=== PATIENT | female | born 1995 | race African-American/Black ===

== ENCOUNTER 2020-04-30 08:46 | Day surgery (SDC) | payer BC, OTHER ==
--- NOTE | 2020-04-24 12:01 | HP ---
Admitting History and Physical - Primary Care Physician PCP: Konrad Niño - Admission Chief Complaint: right accessory breast tissue History of Present Illness: 25 year old premenapausal nulliparous female who presents with bilateral axillary masses for past 5 years that have recently increased in size right greater than left. right region was enlarged and painful since the last visit. Patient'S grandmother had breast cancer at AGE 60. History Source: Patient Limitations to Obtaining History: No Limitations - Past Medical History ...LMP: 09/10/18 - Past Surgical History Past Surgical History: Yes: Hernia Repair (inguinal as a toddler) - Smoking History Smoking history: Never smoked - Alcohol/Substance Use Hx Alcohol Use: No Home Medications - Allergies Allergies/Adverse Reactions: Allergies Allergy/AdvReac Type Severity Reaction Status Date / Time aspirin Allergy Nausea Verified 12/06/18 10:57 ibuprofen Allergy Nausea Verified 12/06/18 10:57 - Home Medications Home Medications: Ambulatory Orders NK [No Known Home Medication] 12/06/18 Family Medical History Family Hx Cancer: Grandmother (maternal) (breast ca 60) Physical Examination Constitutional: Yes: Well Nourished Breast(s): Yes: Other ( breast no palapble masses bilaterally, Right axillary breast tissue 6 cm,left is minimal) Problem List - Problems (1) Axillary accessory breast tissue Problems reviewed: Yes Code(s): Q83.1 - ACCESSORY BREAST Assessment/Plan excision of right accessory breast tissue
[2020-04-24 12:30] VITALS: BMI 26.6
[2020-04-30] MEDS ORDERED: ONDANSETRON 4 MG/2 ML VIAL IVPUSH PRN (09:44)
[2020-04-30] MEDS ORDERED: KETOROLAC TROMETHAMINE 30 MG/1 ML VIAL IVPUSH PRN (09:44)
[2020-04-30] MEDS ORDERED: DEXTROSE 5%-0.45% SALINE 1,000 ML IV SCH (09:45)
[2020-04-30] MEDS ORDERED: LIDOCAINE HCL 1%, 10 MG/ML (20ML VIAL) ONE (09:48)
[2020-04-30] MEDS ORDERED: BUPIVACAINE HCL/PF 0.5% (5MG/ML) 10 ML VIAL ONE (09:48)
[2020-04-30] MEDS ORDERED: LIDOCAINE HCL 1%, 10 MG/ML (20ML VIAL) NR ONE ×3 (10:35)
[2020-04-30] MEDS ORDERED: BUPIVACAINE HCL/PF 0.5% (5 MG/ML) 30 ML VIAL IJ ONE ×3 (10:35)
[2020-04-30] MEDS ORDERED: MIDAZOLAM HCL 2 MG/2 ML SINGLE DOSE VIAL ONE ×2 (11:02→11:04)
[2020-04-30] MEDS ORDERED: PROPOFOL 20 ML ONE (11:03)
[2020-04-30] MEDS ORDERED: ONDANSETRON 4 MG/2 ML VIAL ONE ×2 (11:04)
[2020-04-30] MEDS ORDERED: ROCURONIUM BROMIDE 50 MG/5 ML SYRINGE ONE (11:04)
[2020-04-30] MEDS ORDERED: DEXAMETHASONE SOD PHOSPHATE 4 MG/1 ML VIAL ONE (11:04)
[2020-04-30] MEDS ORDERED: KETOROLAC TROMETHAMINE 30 MG/1 ML VIAL ONE (11:05)
[2020-04-30] MEDS ORDERED: oxyCODONE HCL 5 MG TABLET PO PRN (11:24)
[2020-04-30] MEDS ORDERED: PROMETHAZINE HCL 25 MG/1 ML VIAL IVPUSH PRN (11:24)
[2020-04-30 11:38] VITALS: TEMP 98
[2020-04-30 13:09] VITALS: BP 105/66; PULSE 76
--- NOTE | 2020-05-01 14:33 | PATH ---
Surgical Pathology Report Patient Name: SUSHMA LERNER Med. Rec. #: [id number] /Age/Gender: 1995 (Age: 25) / F Account: [id number] Location: [facility] Taken: 04/30/2020 Received: 04/30/2020 Reported: 05/01/2020 Physicians: Konrad Niño M.D. Specimen(s) Received RIGHT AXILLARY ACCESSORY BREAST TISSUE Clinical History Right axillary accessory breast tissue Final Diagnosis ACCESSORY BREAST TISSUE, RIGHT AXILLA, EXCISION: BENIGN BREAST TISSUE AND SKIN. Electronically Signed Sonya Chadwick M.D. Gross Description Received in formalin labeled "right axillary accessory breast tissue," are 3 le, irregular, unoriented portions of skin with underlying soft tissue ranging from 2.8 x 1.0 x 0.9 cm to 6.0 x 2.4 x 2.4 cm. The epidermal surfaces are unremarkable. Sectioning reveals dense white fibrous tissue within the larger specimen. [employer] sections are submitted in 2 cassettes. /04/30/2020 saudi/04/30/2020
--- NOTE | 2020-05-01 17:39 | OP ---
DATE OF OPERATION: 04/30/2020 PREOPERATIVE DIAGNOSIS: Symptomatic right axillary accessory breast tissue. POSTOPERATIVE DIAGNOSIS: Symptomatic right axillary accessory breast tissue. PROCEDURE: Excision of right axillary accessory breast tissue. ANESTHESIA: IV sedation with local. ATTENDING SURGEON: Nicole Niño MD. ORACLE DEVELOPER: DENICE Wilkerson. ESTIMATED BLOOD LOSS: Minimal. COMPLICATIONS: None. DESCRIPTION OF PROCEDURE: Patient was made aware of the risks and benefits of the procedure and consented. She was placed in a supine position, and after IV sedation was administered, the operative site was prepped and draped in the usual sterile fashion. Local anesthesia consisting of 1% lidocaine with 0.5% bupivacaine in 1 to 1 ratio was locally infiltrated into the surgical tissues. An elliptical incision was made around the accessory breast tissue using electrocautery. Tissue was excised and submitted for permanent sectioning. Wound was copiously irrigated with normal saline. Hemostasis maintained with electrocautery. The wound was then closed with deep 3-0 Vicryl followed by running subcuticular 4-0 Monocryl. Dermabond and a sterile dressing were then applied. The patient having tolerated the procedure was transferred to the recovery room in excellent condition. NICOLE NIÑO M.D. [id number]
== END 2020-04-30 13:09 | disposition home or self-care (01) ==
LOC: FASU 08:46
PROVIDERS: ATTEND Surgery Surgical Oncology
PROC: 0JB60ZZ Excision of Chest Subcutaneous Tissue and Fascia, Open Approach (ICD-10-PCS; principal; 2020-04-30 09:30)
DX: Q83.1 Accessory breast (principal)
CPT/HCPCS: 84703; 88304-TC